=== PATIENT | male | born 1965 | race Caucasian/White ===

== ENCOUNTER 2019-01-10 23:44 | Emergency (ER) | payer OTHER ==
[~2019-01-10] VITALS: Ht 177.8 cm; Wt 106.8 kg
[2019-01-10 23:49] VITALS: Ht 177.8 cm; Wt 106.8 kg
[2019-01-11] MEDS ORDERED: KETOROLAC 30 MG INJ IM STA (00:28)
[2019-01-11] MEDS ORDERED: DEXAMETHASONE 10 MG/ML 1 ML INJ IM ONE (00:30)
[2019-01-11] MEDS ORDERED: NAPR-985 PO (00:31)
--- NOTE | 2019-01-11 00:45 | ERD ---
ER Documentation Chief Complaint Chief Complaint RIGHT KNEE PAIN X SAT. HPI 53-year-old male with no reported past medical surgical history who presents with complaint of right knee pain since Thursday. She describes a crampy type right knee pain which is made worse by standing with intermittent locking of right knee. Has had intermittent swelling of right knee as well. He denies any history of fall or trauma. 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 Denies any previous history of knee injury or surgery. Has taken ibuprofen with some relief of his pain. He otherwise without complaint denies numbness or weakness of distal lower extremit y. ROS All systems reviewed and are negative except as per history of present illness. Medications Home Meds Active Scripts Naproxen* (Naprosyn*) 500 Mg Tablet, 500 MG PO BID PRN for PAIN AND/OR INFLAM MATION, #30 TAB Prov:LEON HERNANDEZ PA-C 01/11/19 PMhx/Soc Medical and Surgical Hx: pt denies Medical Hx, pt denies Surgical Hx Hx Alcohol Use: No Hx Substance Use: No Hx Tobacco Use: No Smoking Status: Never smoker FmHx Family History: No diabetes, No coronary disease, No other Physical Exam Vitals Vital Signs Date Temp Pulse Resp B/P (MAP) Pulse Ox O2 O2 Flow FiO2 Time Delivery Rate 01/10/19 98.6 92 14 148/88 97 23:49 (108) Physical Exam I have reviewed the triage vital signs. Const: Well nourished, well developed, appears stated age Eyes: PERRL, no conjunctival injection HENT: NCAT, Neck supple without meningismus CV: RRR, Warm, well-perfused extremities RESP: CTAB, Unlabored respiratory effort GI: soft, non-tender, non-distended, no masses MSK: No gross deformities appreciated, right knee with mild swelling, pain on full extension Lower Extremity - bilateral: Skin: No laceration Compartments: Soft Motor: Full active range of motion hip/knee/ankle/foot Sensation: Intact to light touch FDWS/MF/LF/P surfaces. Bones: Nontender pelvis/knee/proximal tibia/ malleoli/foot Joints: No effusion or laxity Pulses/Perfusion: 2+ DP, Capillary refill < 2 seconds Skin: Warm, dry. No rashes Neuro: grossly non focal Psych: Appropriate mood and affect. Results 24 hrs Current Medications Medications Dose Sig/Porfirio Start Time Status Last (Trade) Ordered Route PRN Stop Time Admin Dose Reason Admin Ketorolac 30 mg ONCE STAT 01/11/19 DC 01/11/19 Tromethamine IM 00:28 00:32 (Toradol) 01/11/19 00:30 10 mg ONCE ONCE 01/11/19 DC 01/11/19 Dexamethasone IM 00:30 00:32 (Decadron) 01/11/19 00:31 Procedures/MDM 33-year-old male with no past medical history who presents with complaint of chronic right knee pain. I have low suspicion for acute fracture or septic joint. Patient likely has ligamentous or meniscal injury given exam. X-rays of right knee unremarkable. Patient able to ambulate with some discomfort but otherwise stable gait. Patient advised to follow-up with PMD as he may require referral for additional imaging such as MRI or referral to medical policy specialist. She is expressing understanding and agrees with plan. ED course: Toradol, Decadron DISPOSITION PLAN: We discussed follow up with the patient's primary care doctor within 24 to 48 hours. Patient counseled regarding my diagnostic impression and care plan. Prior to discharge all questions answered. Pt agrees with treatment plan and understands strict return precautions. Precautionary instructions provided including instructions to return to the ER if not improving or for any worsening or changing symptoms or concerns. Disclaimer: Inadvertent spelling and grammatical errors are likely due to EHR/dictation software use and do not reflect on the overall quality of patient care. Also, please note that the electronic time recorded on this note does not necessarily reflect the actual time of the patient encounter. Departure Diagnosis: Primary Impression: Knee pain Condition: Stable Patient Instructions: R.I.C.E., Knee Pain, Uncertain Cause Additional Instructions: Call your primary care doctor TOMORROW for an appointment during the next 2-3 days.See the doctor sooner or return here if your condition worsens before your appointment time. You should follow-up with your PMD regarding a question of need for additional imaging such as MRI or referral to medical policy specialist if your symptoms do not improve or worsen. LEON HERNANDEZ PA-C Jan 11, 2019 00:45
[2019-01-11 01:23] VITALS: BP 140/84; PULSE 80; RESP 17
== END 2019-01-11 01:23 | disposition home or self-care (01) ==
LOC: FTE 23:44
DX: M25.561 Pain in right knee (principal)
CPT/HCPCS: 73562; 96372; J1100; J1885; Z7502